=== PATIENT | male | born 1995 | race Caucasian/White ===

== ENCOUNTER 2022-10-19 12:03 | Emergency (ER) | payer BC ==
[2022-10-19] MEDS ORDERED: Morphine 4 MG/ML Syringe IVPUSH ONE ×2 (13:16→13:57)
[2022-10-19] MEDS ORDERED: Ondansetron 4 MG/2 ML SDV IVPUSH ONE (13:17)
[2022-10-19] MEDS ORDERED: Sodium Chloride 0.9% 1,000 ML IV SCH (13:30)
[2022-10-19] MEDS ORDERED: Tamsulosin 0.4 MG Cap.ER PO ONE (13:54)
[2022-10-19 14:22] LABS: CARBON DIOXIDE,CO2 24.9 mmol/L (21.0-32.0); POTASSIUM,K 4.2 mmol/L (3.5-5.1)
== END 2022-10-19 16:08 | disposition home or self-care (01) ==
LOC: MW.ED 12:03
DX: N13.2 Hydronephrosis with renal and ureteral calculous obstruction (principal)
CPT/HCPCS: 36415; 74176; 80053; 81001; 85025; 96361; 96374; 96375; 99283; A9270; J2270; J2405; J7030